=== PATIENT | female | born 1980 | race Caucasian/White ===

== ENCOUNTER 2018-03-18 12:30 | Emergency (ER) | payer BC ==
[2018-03-18 12:37] VITALS: BP 120/69; PULSE 87; TEMP 98.5; BMI 23.6
--- NOTE | 2018-03-18 12:54 | PDOC ---
History of Present Illness - General Chief Complaint: Pain Stated Complaint: SWOLLEN FACE Time Seen by Provider: 03/18/18 12:38 History Source: Patient Exam Limitations: No Limitations - History of Present Illness Initial Comments: CHIEF COMPLAINT: 38 y/o afebrile female with dental abscess HISTORY OF PRESENT ILLNESS: patient states she has no pain but has a swollen tooth and this morning the left side of her face felt "tight". She denies fever , pain. She is going to see her dentist tomorrow. Vital signs on arrival are within normal limits. REVIEW OF SYSTEMS: GENERAL/CONSTITUTIONAL: No fever/chills. No weakness. No weight change. HEAD, EYES, EARS, NOSE AND THROAT: +swollen tooth. +facial "tightness". No change in vision. No ear pain or discharge. No sore throat. MUSCULOSKELETAL: No joint or muscle swelling or pain. No neck or back pain. SKIN: No rash or easy bruising. NEUROLOGIC: No headache, vertigo, loss of consciousness, or loss of sensation. PHYSICAL EXAM: GENERAL: The patient is awake, alert, and fully oriented, in no acute distress. SHe is well appearing and ambulatory. HEAD: Normal with no signs of trauma. No mastoid TTP b/l. No facial swelling. ENT: Pupils equal, round and reactive to light, extraocular movements intact, sclera anicteric, conjunctiva clear. Small, abscess noted to bottom left gingiva below tooth that is obviously decayed. No TTP of affected tooth. No swelling to face or cheek. EXTREMITIES: Normal range of motion, no edema. NEUROLOGICAL: Normal speech, normal gait. CN II-XII grossly intact. SKIN: Warm, dry, normal turgor, no rashes or lesions noted. Past History - Past Medical History Allergies/Adverse Reactions: Allergies Allergy/AdvReac Type Severity Reaction Status Date / Time No Known Allergies Allergy Verified 03/18/18 12:37 Home Medications: Ambulatory Orders Amoxicillin - [Amoxicillin 500mg Capsule -] 500 mg PO TID #21 capsule 03/18/18 Anemia: Yes COPD: No CHF: No DVT: No - Suicide/Smoking/Psychosocial Hx Smoking History: Never smoked Have you smoked in the past 12 months: No Information on smoking cessation initiated: No Hx Alcohol Use: No Drug/Substance Use Hx: No Substance Use Type: None *Physical Exam - Vital Signs Last Vital Signs Temp Pulse Resp BP Pulse Ox 98.5 F 87 18 120/69 99 03/18/18 12:34 03/18/18 12:34 03/18/18 12:34 03/18/18 12:34 03/18/18 12:34 Medical Decision Making - Medical Decision Making A/P: 38 y/o female with a walled off tooth abscess in bottom left side of mouth. No pain. Will d/c with rx for amox. Instructed her to f/u with dentist tomorrow and return to the ER with any worsening or concerning symptoms. The patient verbalizes understanding of all instructions, has no further questions and is awaiting discharge. *DC/Admit/Observation/Transfer Diagnosis at time of Disposition: Dental abscess - Discharge Dispostion Disposition: HOME Condition at time of disposition: Good - Referrals - Patient Instructions Printed Discharge Instructions: DI for Tooth Decay, Tooth Abscess Additional Instructions: Discharge Instructions: -you have a tooth abscess -A prescription for antibiotics has been sent to your pharmacy -Please follow up with your dentist as soon as possible -Return to the ER with any worsening or concerning symptoms - Post Discharge Activity
== END 2018-03-18 13:06 | disposition home or self-care (01) ==
LOC: JERFT 12:30
DX: K04.7 Periapical abscess without sinus (principal)
CPT/HCPCS: 99281-25